=== PATIENT | male | born 1990 | race Caucasian/White ===

== ENCOUNTER 2017-04-22 20:08 | Emergency (ER) | payer SELFPAY ==
[2017-04-22] MEDS ORDERED: XYLOCAINE 1% 20 mL ONE (20:40)
[2017-04-22] MEDS ORDERED: MARCAINE 0.25% INFILTRATI ONE ×2 (20:41→20:49)
[2017-04-22] MEDS ORDERED: NORCO 5/325 ONE (20:42)
[2017-04-22] MEDS ORDERED: NORCO 5/325 PO ONE (20:42)
[2017-04-22] MEDS ORDERED: NACL 0.9% 500 ML IR ONE (20:43)
--- NOTE | 2017-04-22 20:47 | Emergency Department Report ---
HPI - General Chief Complaint: Wound/Laceration Time Seen by Provider: 04/22/17 20:34 - HPI HPI: Room 22 The patient is a 26-year-old male presenting with chief complaint wrist laceration. The patient states at approximately 18:00 he accidentally slipped while using an electric saw and cut his left wrist. Patient is 5/10. The patient states he is certain he received a tetanus shot 4 years ago. Patient does not complain of difficulty moving the digits of his left hand but does complain of slight numbness of all fingers. Patient denies suicidal ideation and states that this injury was accidental Location: Left wrist Duration: Occurred at 18:00 today Quality: Pain Severity: 07/13 Modifying factors: [see above] Context: [see above] Mode of transportation: [not driving] ED Past Medical Hx - Past Medical History Previous Medical History?: Yes Hx Asthma: Yes (childhood) - Surgical History Past Surgical History?: No - Family History Family history: no significant - Social History Smoking Status: Never Smoker Substance Use Type: None - Medications Home Medications: Home Medications Medication Instructions Recorded Confirmed Last Taken Type Cephalexin [Keflex] 500 mg PO Q6HR #28 capsule 04/22/17 Unknown Rx HYDROcodone/APAP 5-325 [[place] 1 - 2 each PO Q6HR PRN #14 tablet 04/22/17 Unknown Rx 5/325] Ibuprofen [Motrin] 800 mg PO Q8HR PRN #20 tablet 04/22/17 Unknown Rx ED Review of Systems ROS: Stated complaint: LACERATION LEFT HAND Other details as noted in HPI Skin: other (laceration) Neurological: paresthesias Physical Exam - Physical Exam Vital Signs: Vital Signs 04/22/17 20:12 Temperature 98.1 F Pulse Rate 75 Respiratory 18 Rate Blood Pressure 144/78 O2 Sat by Pulse 100 Oximetry Physical Exam: GENERAL: The patient is well-developed well-nourished male lying on stretcher with a bandage to left wrist does not appear to be in acute distress. [] HEENT: Normocephalic. Atraumatic. Extraocular motions are intact. Patient has moist mucous membranes. NECK: Supple. Trachea midline CHEST/LUNGS: There is no respiratory distress noted. HEART/CARDIOVASCULAR: Regular. There is no tachycardia. Normal capillary refill in the digits of the left hand ABDOMEN:There is no abdominal distention. SKIN: NEURO: The patient is awake, alert, and oriented. The patient is cooperative. The patient complains of slight numbness to light touch in the fingers of the left hand palmar and dorsal aspects. Patient has 5+/5 delicatessen manager in the left hand. The patient has normal speech and gait. MUSCULOSKELETAL: The patient is able to make a full fist with left hand as well as extend all digits without difficulty ED Course Vital Signs 04/22/17 20:12 Temperature 98.1 F Pulse Rate 75 Respiratory 18 Rate Blood Pressure 144/78 O2 Sat by Pulse 100 Oximetry - Laceration /Wound Repair Left Anterior Wrist Wound Location: upper extremity Wound Length (cm): 10 Wound's Depth, Shape: linear Wound Explored: clean Irrigated w/ Saline (ccs): 500 Betadine Prep?: Yes Anesthesia: 1% Lidocaine Volume Anesthetic (ccs): 15 (Marcaine 0.25% was mixed with lidocaine 1:1) Wound Debrided: minimal Wound Repaired With: sutures Suture Size/Type: 4:0, nylon Number of Sutures: 12 Layer Closure?: No Sterile Dressing Applied?: Yes ED Medical Decision Making - Radiology Data Radiology results: report reviewed (left wrist x-ray), image reviewed (left wrist x-ray) interpreted by me: Left wrist x-ray-no fractures, no foreign bodies seen FINAL REPORT EXAM: XR WRIST 3+V LT HISTORY: laceration to left wrist from electric saw TECHNIQUE: AP, lateral, and oblique views of the left wrist PRIORS: None. FINDINGS: No evidence of acute fracture or dislocation is seen. There is generalized soft tissue swelling around the wrist. No radiopaque foreign bodies are noted. Joint spaces are maintained. IMPRESSION: No acute bony abnormality identified. Generalized soft tissue swelling around the wrist. Transcribed By: [facility] Dictated By: KAEL CLARK MD Electronically Authenticated By: KAEL CLARK MD Signed Date/Time: 04/22/171731 DD/ 31 TD/TT: 04/22/171731 - Differential Diagnosis wrist laceration, nerve injury, Critical care attestation.: If time is entered above; I have spent that time in minutes in the direct care of this critically ill patient, excluding procedure time. ED Disposition Clinical Impression: Laceration of left wrist, Numbness of left hand Disposition: DC- TO HOME OR SELFCARE Is pt being admited?: No Does the pt Need Aspirin: No Condition: Stable Instructions: Suture Care (ED), Laceration (ED) Additional Instructions: Your sutures need to be removed in 10 days. Return to the emergency department immediately should you develop worsening symptoms, fever, inability to tolerate food or liquid or any other concerns. Prescriptions: Cephalexin [Keflex] 500 mg PO Q6HR #28 capsule HYDROcodone/APAP 5-325 [[place] 5/325] 1 - 2 each PO Q6HR PRN #14 tablet PRN Reason: Pain Ibuprofen [Motrin] 800 mg PO Q8HR PRN #20 tablet PRN Reason: Pain Referrals: OFE ALFREDO MD [Primary Care Provider] - 3-5 Days LIZETH STANFORD MD [Staff Physician] - 3-5 Days (Dr. Stanford is an orthopedic surgeon. Please follow-up with him for further evaluation of your hand) Time of Disposition: 22:10
[2017-04-22] MEDS ORDERED: XYLOCAINE 1% 20 mL INFILTRATI ONE (20:48)
--- NOTE | 2017-04-22 21:36 | XRay Report ---
FINAL REPORT EXAM: XR WRIST 3+V LT HISTORY: laceration to left wrist from electric saw TECHNIQUE: AP, lateral, and oblique views of the left wrist PRIORS: None. FINDINGS: No evidence of acute fracture or dislocation is seen. There is generalized soft tissue swelling around the wrist. No radiopaque foreign bodies are noted. Joint spaces are maintained. IMPRESSION: No acute bony abnormality identified. Generalized soft tissue swelling around the wrist.
[2017-04-22] MEDS ORDERED: TRIPLE ANTIBIOTIC TP ONE (21:54)
[2017-04-22 22:27] VITALS: BP 149/59
== END 2017-04-22 23:19 | disposition home or self-care (01) ==
LOC: ED 20:08
DX: S61.512A Laceration without foreign body of left wrist, initial encounter (principal); R20.0 Anesthesia of skin; J45.909 Unspecified asthma, uncomplicated; W26.8XXA Contact with other sharp object(s), not elsewhere classified, initial encounter; Y93.89 Activity, other specified; Y92.89 Other specified places as the place of occurrence of the external cause; Y99.8 Other external cause status
CPT/HCPCS: A6250

== ENCOUNTER 2017-05-03 16:57 | Emergency (ER) | payer SELFPAY ==
[2017-05-03 17:03] VITALS: BP 136/80
--- NOTE | 2017-05-03 17:11 | Emergency Department Report ---
Suture/Staple Removal - [facility] Chief Complaint: Laceration/Recheck/Suture Stated Complaint: SUTURE REMOVAL Time Seen by Provider: 05/03/17 17:05 When Sutures or Melany Placed: 8-10 Days Ago Wound Location: anterior left wrist ED Review of Systems ROS: Stated complaint: SUTURE REMOVAL Other details as noted in HPI Constitutional: denies: chills, fever Eyes: denies: eye pain, eye discharge, vision change ENT: denies: ear pain, throat pain Respiratory: denies: cough, shortness of breath, wheezing Cardiovascular: denies: chest pain, palpitations Endocrine: no symptoms reported Gastrointestinal: denies: abdominal pain, nausea, diarrhea Genitourinary: denies: urgency, dysuria Musculoskeletal: denies: back pain, joint swelling, arthralgia Skin: denies: rash, lesions Neurological: denies: headache, weakness, paresthesias Psychiatric: denies: anxiety, depression Hematological/Lymphatic: denies: easy bleeding, easy bruising ED Past Medical Hx - Past Medical History Hx Asthma: Yes (childhood) - Surgical History Past Surgical History?: No - Social History Smoking Status: Never Smoker Substance Use Type: None - Medications Home Medications: Home Medications Medication Instructions Recorded Confirmed Last Taken Type Cephalexin [Keflex] 500 mg PO Q6HR #28 capsule 04/22/17 Unknown Rx HYDROcodone/APAP 5-325 [[place] 1 - 2 each PO Q6HR PRN #14 tablet 04/22/17 Unknown Rx 5/325] Ibuprofen [Motrin] 800 mg PO Q8HR PRN #20 tablet 04/22/17 Unknown Rx Suture Removal Exam - Exam General: Vital signs noted. No distress. Alert and acting appropriately. Wound: No Pathologic Erythema, No Tenderness, No Drainage, No Pus, No Wound Dehiscence Other Systems: All other systems reviewed and are unremarkable. Total of 12 sutures. Well healing. No abscess or swelling noted. No cellulitis. ED Course Vital Signs 05/03/17 17:00 Temperature 98.2 F Pulse Rate 55 L Respiratory 16 Rate Blood Pressure 136/80 O2 Sat by Pulse 100 Oximetry - Reevaluation(s) Reevaluation #1: 05/03/17 17:12 Patient is speaking in full sentences with no signs of distress noted. ED Recheck MDM - Medical Decision Making 26-year-old male that presents with suture removal. 12 sutures has been removed. Area is well healing with no signs of wound deshiences. No saline or abscess noted. There is very rarely has to antibiotics (that was prescribed that is currently still taking. Patient was educated on proper wound care and was instructed to continue taking antibiotics as prescribed. At time of discharge, the patient does not seem toxic or ill in appearance. No acute signs of distress noted. Patient agrees to discharge treatment plan of care. No further questions noted by the patient. Critical care attestation.: If time is entered above; I have spent that time in minutes in the direct care of this critically ill patient, excluding procedure time. ED Disposition Clinical Impression: Visit for suture removal Disposition: DC-01 TO HOME OR SELFCARE Is pt being admited?: No Does the pt Need Aspirin: No Condition: Stable Instructions: Suture Removal (ED) Referrals: PRIMARY CARE, [Primary Care Provider] - 3-5 Days MALATHI CALLAHAN MD [Staff Physician] - 3-5 Days [facility] [place] [Outside] - 3-5 Days
== END 2017-05-03 17:31 | disposition home or self-care (01) ==
LOC: ED 16:57
DX: S61.512D Laceration without foreign body of left wrist, subsequent encounter (principal); J45.909 Unspecified asthma, uncomplicated; W45.8XXD Other foreign body or object entering through skin, subsequent encounter